=== PATIENT | female | born 1960 | race Two or more races ===

== ENCOUNTER 2023-04-11 16:03 | Emergency (ER) | payer SELFPAY ==
[~2023-04-11] VITALS: Ht 165.1 cm; Wt 57.2 kg
[2023-04-11] MEDS ORDERED: CARI350T PO (19:13)
[2023-04-11] MEDS: CARISOPRODOL 350 MG TABLET PO ONE (19:41)
[2023-04-11 19:42] VITALS: BP 135/70; TEMP 98.7; O2SAT 98
== END 2023-04-11 19:36 | disposition home or self-care (01) ==
LOC: ER 16:15
DX: S13.8XXA Sprain of joints and ligaments of other parts of neck, initial encounter (principal); S43.491A Other sprain of right shoulder joint, initial encounter; V89.2XXA Person injured in unspecified motor-vehicle accident, traffic, initial encounter; Y93.89 Activity, other specified; Y92.89 Other specified places as the place of occurrence of the external cause; Y99.8 Other external cause status
CPT/HCPCS: 72125-TC; 73030-TC